=== PATIENT | female | born 1995 | race Hispanic/Latino ===

== ENCOUNTER 2019-08-25 07:43 | Inpatient (IN) | payer MEDICAID ==
[2019-08-25] MEDS ORDERED: LACTATED RINGERS 1000ML 1,000 ML IV PRN (09:06)
[2019-08-25] MEDS ORDERED: AMPICILLIN 1GM+NS 50ML 50 ML IV SCH (09:15)
[2019-08-25] MEDS ORDERED: AMPICILLIN 2GM+NS 100ML 100 ML IV SCH (09:15)
[2019-08-25] MEDS ORDERED: OXYTOCIN-LR 20 UNITS/1000 ML 1,000 ML IV SCH (09:15)
[2019-08-25] MEDS ORDERED: OXYTOCIN 10 USP UNITS/ML 20 UNIT in LACTATED RINGERS 1000ML 1,000 ML IV SCH (10:30)
[2019-08-25] MEDS ORDERED: NALOXONE HCL 0.4 MG/1 ML ML IV PRN (11:00)
[2019-08-25] MEDS ORDERED: EPHEDRINE SULFATE 50 MG/ML AMPULE IVP PRN (11:00)
[2019-08-25] MEDS ORDERED: LACTATED RINGERS 500 ML 500 ML IV PRN (11:00)
[2019-08-25] MEDS ORDERED: FENTANYL CITRATE PF 50 MCG/1 ML 2ML VIAL ONE (14:17)
[2019-08-25] MEDS ORDERED: LIDOCAINE HCL 1% 20 ML VIAL ONE (16:25)
[2019-08-25] MEDS ORDERED: METHYLERGONOVINE MALEATE 0.2 MG/1 ML ML ONE (16:25)
[2019-08-25] MEDS ORDERED: ACETAMINOPHEN 325 MG TAB PO PRN (17:15)
[2019-08-25] MEDS ORDERED: ACETAMINOPHEN-CODEINE 300/30MG TAB PO PRN (17:15)
[2019-08-25] MEDS ORDERED: DIPH,PERTUSS(ACELL),TET VAC/PF 0.5 ML VIAL IM PRN (17:15)
[2019-08-25] MEDS ORDERED: MEASLES/MUMPS/RUBELLA VACCINE, LIVE 0.5 ML/VIAL SQ PRN (17:15)
[2019-08-25] MEDS ORDERED: WITCH HAZEL 1 PAD TP PRN (17:15)
[2019-08-25] MEDS ORDERED: LANOLIN 30GM OINTMENT TP PRN (17:15)
[2019-08-25] MEDS ORDERED: BENZOCAINE/LANOLIN/ALOE VERA 60 ML AEROSOL TP PRN (17:15)
[2019-08-25 18:55] VITALS: BP 132/82; PULSE 110; RESP 18; TEMP 100.5
[2019-08-25] MEDS: IBUPROFEN 600 MG TABLET PO PRN (21:20)
[2019-08-25] MEDS: DOCUSATE SODIUM 100 MG CAP PO SCH (21:20)
[2019-08-25 23:12] VITALS: BP 127/74; PULSE 89; RESP 20; TEMP 98.2
[2019-08-26 03:59] VITALS: BP 123/80; PULSE 75; RESP 20; TEMP 98
[2019-08-26 07:12] VITALS: BP 119/72; PULSE 85; RESP 18; TEMP 98.2
--- NOTE | 2019-08-26 08:00 | NUR ---
PATIENT ASSESSED AND STATES HAVING PAIN OF 2. PATIENT HAS NEGATIVE AMELIA'S SIGN BILATERALLY AND PIV TO LH WAS REMOVED AND SITE WNL. PATIENT STABLE.
[2019-08-26] MEDS: DOCUSATE SODIUM 100 MG CAP PO SCH (08:49)
[2019-08-26] MEDS: IBUPROFEN 600 MG TABLET PO PRN (08:51)
--- NOTE | 2019-08-26 09:30 | NUR ---
DR. FARAH CALLED RE PATIENT STATUS AND TELEPHONE ORDER RECEIVED FOR DISCHARGE. PATIENT STABLE.
[2019-08-26 11:10] VITALS: BP 117/65; PULSE 80; RESP 18; TEMP 98
--- NOTE | 2019-08-26 14:15 | NUR ---
DISCHARGE INSTRUCTIONS GIVEN AND SCRIPT FOR HOME PAIN MANAGEMENT GIVEN AND INSTRUCTED PT ON DOSAGE AND FREQUENCY. VERBALIZED UNDERSTANDING INSTRUCTIONS GIVEN.
[2019-08-26 16:22] VITALS: BP 112/64; PULSE 78; RESP 18; TEMP 98.8
--- NOTE | 2019-08-26 17:40 | NUR ---
PATIENT WAS TAKEN VIA W/C TO [facility]ILY [facility] IN [place]. PATIENT IS STABLE AND DENIES PAIN AT THIS TIME.
== END 2019-08-26 17:40 | disposition home or self-care (01) | DRG 560 ==
LOC: EDH 07:43 → LDH 07:50 → OBSVTOIN 07:50 → LDH 15:50 → WSH 19:11
PROVIDERS: ADMIT Obstetrics & Gynecology; ATTEND Obstetrics & Gynecology
PROC: 10E0XZZ Delivery of Products of Conception, External Approach (ICD-10-PCS; principal; 2019-08-25)
PROC: 10907ZC Drainage of Amniotic Fluid, Therapeutic from Products of Conception, Via Natural or Artificial Opening (ICD-10-PCS; 2019-08-25)
PROC: 3E0234Z Introduction of Serum, Toxoid and Vaccine into Muscle, Percutaneous Approach (ICD-10-PCS; 2019-08-25)
PROC: 3E0134Z Introduction of Serum, Toxoid and Vaccine into Subcutaneous Tissue, Percutaneous Approach (ICD-10-PCS; 2019-08-25)
PROC: 3E0R3BZ Introduction of Anesthetic Agent into Spinal Canal, Percutaneous Approach (ICD-10-PCS; 2019-08-25)
PROC: 00HU33Z Insertion of Infusion Device into Spinal Canal, Percutaneous Approach (ICD-10-PCS; 2019-08-25)
PROC: 0UQGXZZ Repair Vagina, External Approach (ICD-10-PCS; 2019-08-25)
DX: O98.52 Other viral diseases complicating childbirth (principal); Z37.0 Single live birth; U07.1 COVID-19; O71.4 Obstetric high vaginal laceration alone; O69.81X0 Labor and delivery complicated by cord around neck, without compression, not applicable or unspecified; Z23 Encounter for immunization; Z3A.39 39 weeks gestation of pregnancy; O75.89 Other specified complications of labor and delivery; R00.0 Tachycardia, unspecified

== ENCOUNTER 2023-08-02 15:10 | Inpatient (IN) | payer BC, MEDICAID ==
[~2023-08-02] VITALS: Ht 172.7 cm; Wt 99.8 kg
[~2023-08-02 15:10] MED LIST: PREN-154 PO
[2023-08-02] MEDS ORDERED: NALOXONE HCL 0.4 MG/1 ML ML IV PRN (16:00)
[2023-08-02] MEDS ORDERED: ROPIVACAINE 0.2% 2MG/ML 100ML VIAL EP SCH (16:00)
[2023-08-02] MEDS ORDERED: LACTATED RINGERS 500 ML 500 ML IV PRN (16:00)
[2023-08-02] MEDS ORDERED: EPHEDRINE SULFATE 50 MG/ML AMPULE IVP PRN (16:00)
[2023-08-02 16:10] LABS: BASOPHILS # (AUTO) 0.03 K/uL (0.00-0.20); BASOPHILS % (AUTO) 0.2 % (0.0-5.0); EOSINOPHILS # (AUTO) 0.07 K/uL (0.00-0.70); EOSINOPHILS % (AUTO) 0.6 % (0.0-8.0); HEMATOCRIT 38.1 % (36-48); IMMATURE GRANULOCYTE ABSOLUTE 0.09 K/uL (0-1); LYMPHOCYTES # (AUTO) 2.6 K/uL (1.0-4.8); LYMPHOCYTES % (AUTO) 20.5 % (21.0-51.0); MEAN CORPUSCULAR HEMOGLOBIN 27.3 pg (27.0-33.0); MEAN CORPUSCULAR HGB CONC 32.3 g/dL (32.0-36.0); MEAN CORPUSCULAR VOLUME 84.7 fL (79-99); MONOCYTES # (AUTO) 0.7 K/uL (0.1-1.0); MONOCYTES % (AUTO) 5.4 % (3.0-13.0); NEUTROPHILS # (AUTO) 9.1 K/uL (1.8-7.7); NEUTROPHILS % (AUTO) 72.6 % (40.0-77.0); PLATELET COUNT (AUTO) 317 K/uL (130-400); RED CELL DISTRIBUTION WIDTH 16.2 % (11.0-15.5); WHITE BLOOD COUNT (AUTO) 12.5 K/uL (4.8-10.8)
[2023-08-02 16:12] LABS: APPEARANCE,URINE CLEAR (CLEAR); BILIRUBIN,URINE NEGATIVE (NEGATIVE); COLOR,URINE YELLOW (YELLOW); GLUCOSE, URINE (UA) NEGATIVE (NEGATIVE); KETONES,URINE NEGATIVE (NEGATIVE); LEUKOCYTE ESTERASE ,URINE 25 Leu/uL (NEGATIVE); NITRATE,URINE NEGATIVE (NEGATIVE); OCCULT BLOOD,URINE NEGATIVE (NEGATIVE); PROTEIN,URINE 70 mg/dL (NEGATIVE); UROBILINOGEN,URINE 0.2 mg/dL (0.2-1.0)
[2023-08-02] MEDS: LACTATED RINGERS 1000ML 1,000 ML IV PRN (16:41)
[2023-08-02] MEDS: AMPICILLIN 2GM+NS 100ML 100 ML IV SCH (16:41)
[2023-08-02 16:48] LABS: ADD UA MICROSCOPIC YES
[2023-08-02 16:51] LABS: MUCUS,URINE RARE LPF (None Seen); SQUAMOUS EPITHELIAL CELL,UR FEW /HPF (0-2)
[2023-08-02 16:57] LABS: INR <= 0.93 (0.85-1.15); PROTHROMBIN TIME 9.5 SEC (9.6-11.6)
[2023-08-02 16:58] LABS: CREATININE 0.7 mg/dL (0.5-1.0); PARTIAL THROMBOPLASTIN TIME 26.1 SEC (26.3-35.5); POTASSIUM 4.2 mmol/L (3.5-5.1)
[2023-08-02 17:02] LABS: ALBUMIN 2.5 g/dL (3.5-5.0); BILIRUBIN,TOTAL 0.2 mg/dL (0.2-1.0); TOTAL PROTEIN, SERUM 7.5 g/dL (6.0-8.3); URIC ACID 3.7 mg/dL (2.6-7.2)
[2023-08-02 17:07] LABS: FIBRINOGEN 629 mg/dL (180-350)
[2023-08-02] MEDS ORDERED: DINOPROSTONE 10 MG VAGINAL SUPP VG ONE (19:00)
[2023-08-02] MEDS: DINOPROSTONE 10 MG VAGINAL SUPP VG ONE (19:31)
[2023-08-02] MEDS: AMPICILLIN 1GM+NS 50ML 50 ML IV SCH (20:45)
[2023-08-03] MEDS: PROMETHAZINE HCL 25 MG/ML 1ML AMPULE IM PRN (02:24)
[2023-08-03] MEDS: MEPERIDINE-PF 50 MG/ML SYG IVP PRN (02:25)
[2023-08-03] MEDS ORDERED: FENTANYL CITRATE PF 50 MCG/1 ML 2ML VIAL ONE (06:05)
[2023-08-03] MEDS: OXYTOCIN-LR 30 UNITS/500ML 500 ML IV SCH ×2 (07:57→16:15)
[2023-08-03] MEDS ORDERED: MISOPROSTOL 200 MCG TABLET ONE (08:23)
[2023-08-03] MEDS ORDERED: ACETAMINOPHEN WITH CODEINE 1 TAB TAB PO PRN (15:30)
[2023-08-03] MEDS ORDERED: LANOLIN 30GM OINTMENT TP PRN (15:30)
[2023-08-03] MEDS ORDERED: MEASLES/MUMPS/RUBELLA VACCINE, LIVE 0.5 ML/VIAL SQ PRN (15:30)
[2023-08-03] MEDS ORDERED: ACETAMINOPHEN 325 MG TAB PO PRN (15:30)
[2023-08-03] MEDS: IBUPROFEN 600 MG TABLET PO PRN (18:14)
[2023-08-03 19:27] VITALS: BP 137/68; PULSE 82; RESP 20
[2023-08-03] MEDS: DOCUSATE SODIUM 100 MG CAP PO SCH (21:14)
[2023-08-03 23:05] VITALS: BP 131/73; PULSE 84; RESP 18
[2023-08-04] MEDS: BENZOCAINE/LANOLIN/ALOE VERA 60 ML AEROSOL TP PRN (02:10)
[2023-08-04 03:15] VITALS: BP 122/76; PULSE 79; RESP 20
[2023-08-04] MEDS: WITCH HAZEL 1 PAD TP PRN (03:24)
[2023-08-04] MEDS: DIPH,PERTUSS(ACELL),TET VAC/PF 0.5 ML VIAL IM PRN (03:32)
[2023-08-04 06:58] LABS: HEMATOCRIT 30.8 % (36-48); MEAN CORPUSCULAR HEMOGLOBIN 27.8 pg (27.0-33.0); MEAN CORPUSCULAR HGB CONC 32.5 g/dL (32.0-36.0); MEAN CORPUSCULAR VOLUME 85.6 fL (79-99); RED BLOOD CELL COUNT(AUTO) 3.6 MIL/uL (4.00-5.50); RED CELL DISTRIBUTION WIDTH 16.5 % (11.0-15.5); WHITE BLOOD COUNT (AUTO) 16.5 K/uL (4.8-10.8)
[2023-08-04 07:45] VITALS: BP 133/87; PULSE 77; RESP 15
[2023-08-04 11:30] VITALS: BP 126/87; PULSE 84; RESP 15
== END 2023-08-04 16:15 | disposition home or self-care (01) | DRG 807 ==
LOC: EDH 15:10 → OBSVTOIN 15:37 → LDH 15:37 → WSH 08-03 18:44
PROVIDERS: ADMIT Obstetrics & Gynecology; ATTEND Obstetrics & Gynecology
PROC: 10E0XZZ Delivery of Products of Conception, External Approach (ICD-10-PCS; principal; 2023-08-03)
PROC: 3E0P7VZ Introduction of Hormone into Female Reproductive, Via Natural or Artificial Opening (ICD-10-PCS; 2023-08-03)
PROC: 3E033VJ Introduction of Other Hormone into Peripheral Vein, Percutaneous Approach (ICD-10-PCS; 2023-08-03)
PROC: 10907ZC Drainage of Amniotic Fluid, Therapeutic from Products of Conception, Via Natural or Artificial Opening (ICD-10-PCS; 2023-08-03)
PROC: 3E0R3BZ Introduction of Anesthetic Agent into Spinal Canal, Percutaneous Approach (ICD-10-PCS; 2023-08-03)
PROC: 00HU33Z Insertion of Infusion Device into Spinal Canal, Percutaneous Approach (ICD-10-PCS; 2023-08-03)
PROC: 3E0234Z Introduction of Serum, Toxoid and Vaccine into Muscle, Percutaneous Approach (ICD-10-PCS; 2023-08-04)
DX: O99.824 Streptococcus B carrier state complicating childbirth (principal); Z37.0 Single live birth; O62.3 Precipitate labor; R03.0 Elevated blood-pressure reading, without diagnosis of hypertension; O75.89 Other specified complications of labor and delivery; Z3A.38 38 weeks gestation of pregnancy; Z23 Encounter for immunization
CPT/HCPCS: 36415; 80053; 81001; 84550; 85025; 85027; 85384; 85610; 85730; 86592; 86850; 86900; 86901; 87340; 90715; A4314; G0378; J0290; J2175; J2550; J2795; J3010; J7120